=== PATIENT | female | born 1980 | race Two or more races ===

== ENCOUNTER 2016-08-10 17:53 | Emergency (ER) | payer SELFPAY ==
[~2016-08-10] VITALS: Ht 149.9 cm; Wt 77.1 kg
[~2016-08-10 17:53] MED LIST: PROM25TA10 PO; SUMA50TA3 PO
[2016-08-10] MEDS ORDERED: IV NORMAL SALINE 1000ML BAG 1,000 ML IV SCH (19:38)
[2016-08-10] MEDS ORDERED: LORAZEPAM 2 MG/ML VIAL IV ONE (19:45)
[2016-08-10] MEDS ORDERED: ASPIRIN 81 MG TAB.CHEW PO ONE (19:45)
--- NOTE | 2016-08-10 19:45 | PHYS DOC ---
Past Medical History Past Medical History: Migraines Past Surgical History: , Tubal ligation Alcohol Use: None Drug Use: None Adult General Chief Complaint Chief Complaint: CHEST PAIN HPI HPI Patient is a 35 year old female who presents with complaint of chest pain. Patient states that she has been having intermittent symptoms over the past 2-3 weeks, however she had a sudden onset of symptoms while driving earlier today at 1400. Patient states that she experienced substernal chest pain which radiated through her back and into her left shoulder. Patient had associated nausea with her symptoms and pain and numbness in her left upper extremity. Patient states that the symptoms have improved at this time but are still present. Patient denies any significant past medical history and is not currently on any medications. Patient denies any family history of heart attack. Patient states that she has not taken any medications to help with symptoms. Patient denies history of tobacco use. Review of Systems Review of Systems Constitutional: Denies fever or chills [] Eyes: Denies change in visual acuity, redness, or eye pain [] HENT: Denies nasal congestion or sore throat [] Respiratory: Denies cough or shortness of breath [] Cardiovascular: Chest pain, denies edema [] GI: Nausea, denies abdominal pain, vomiting, bloody stools or diarrhea [] : Denies dysuria or hematuria [] Musculoskeletal: Denies back pain or joint pain [] Integument: Denies rash or skin lesions [] Neurologic: Denies headache, focal weakness or sensory changes [] Current Medications Current Medications Current Medications Medications (Trade) Dose Ordered Sig/Basim Start Time Stop Time Status Last Admin Dose Admin Aspirin (Children'S Aspirin) 324 mg 1X ONCE 08/10/16 19:45 08/10/16 19:46 DC 08/10/16 20:14 324 MG Lorazepam 1 mg 1 mg 1X ONCE 08/10/16 19:45 08/10/16 19:46 DC 08/10/16 20:14 1 MG Sodium Chloride (Iv Sodium Chloride 0.9% 1000ml Bag) 1,000 ml @ 1,000 mls/hr Q1H 08/10/16 19:38 08/10/16 20:37 DC 08/10/16 20:13 1,000 MLS/HR Allergies Allergies Allergies Coded Allergies Type Severity Reaction Last Updated Verified No Known Drug Allergies 8/30/16 No Physical Exam Physical Exam Constitutional: Alert, afebrile, appears in mild discomfort. [] HENT: Normocephalic, atraumatic, bilateral external ears normal, oropharynx moist, no oral exudates, nose normal. [] Eyes: PERRLA, EOMI, conjunctiva normal, no discharge. [] Neck: Normal range of motion, no tenderness, supple, no stridor. [] Cardiovascular:Heart rate regular rhythm, no murmur [] Lungs & Thorax: Bilateral breath sounds clear to auscultation [] Abdomen: Bowel sounds normal, soft, no tenderness, no masses, no pulsatile masses. [] Skin: Warm, dry, no erythema, no rash. [] Back: No tenderness, no CVA tenderness. [] Extremities: No tenderness, no cyanosis, no clubbing, ROM intact, no edema. [] Neurologic: Alert and oriented X 3, normal motor function, normal sensory function, no focal deficits noted. [] Current Patient Data Vital Signs Vital Signs Date Time Temp Pulse Resp B/P Pulse Ox O2 Delivery O2 Flow Rate FiO2 08/10/16 19:11 98.1 65 20 119/65 99 Room Air 98.1 Lab Values Laboratory Tests Test 08/10/16 19:20 08/10/16 19:50 08/10/16 20:03 White Blood Count 7.1x10^3/uL (4.0-11.0) Red Blood Count 4.18x10^6/uL (3.50-5.40) Hemoglobin 12.9g/dL (12.0-15.5) Hematocrit 39.7% (36.0-47.0) Mean Corpuscular Volume 95fL (79-100) Mean Corpuscular Hemoglobin 31pg (25-35) Mean Corpuscular Hemoglobin Concent 32g/dL (31-37) Red Cell Distribution Width 13.7% (11.5-14.5) Platelet Count 350x10^3/uL (140-400) Neutrophils (%) (Auto) 32% (31-73) Lymphocytes (%) (Auto) 54% (24-48) H Monocytes (%) (Auto) 8% (0-9) Eosinophils (%) (Auto) 5% (0-3) H Basophils (%) (Auto) 1% (0-3) Neutrophils # (Auto) 2.3x10^3uL (1.8-7.7) Lymphocytes # (Auto) 3.9x10^3/uL (1.0-4.8) Monocytes # (Auto) 0.6x10^3/uL (0.0-1.1) Eosinophils # (Auto) 0.3x10^3/uL (0.0-0.7) Basophils # (Auto) 0.1x10^3/uL (0.0-0.2) D-Dimer (Kaylie) 0.33ug/mlFEU (0.00-0.50) Sodium Level 143mmol/L (136-145) Potassium Level 3.7mmol/L (3.5-5.1) Chloride Level 107mmol/L (98-107) Carbon Dioxide Level 27mmol/L (21-32) Anion Gap 9 (6-14) Blood Urea Nitrogen 15mg/dL (7-20) Creatinine 0.6mg/dL (0.6-1.0) Estimated GFR (Cockcroft-Gault) 112.5 Glucose Level 102mg/dL (70-99) H Calcium Level 8.8mg/dL (8.5-10.1) Magnesium Level 2.0mg/dL (1.8-2.4) Total Bilirubin 0.2mg/dL (0.2-1.0) Direct Bilirubin < 0.1mg/dL (0.0-0.2) Aspartate Amino Transferase (AST) 15U/L (15-37) Alanine Aminotransferase (ALT) 26U/L (14-59) Alkaline Phosphatase 65U/L (46-116) Creatine Kinase 120U/L (26-192) Creatine Kinase MB (Mass) 0.6ng/mL (0.0-3.6) Creatine Kinase MB Relative Index 0.5% (0-4) Troponin I Quantitative < 0.017ng/mL (0.000-0.055) LX-Beh-O-Type Natriuretic Peptide 20pg/mL (0-124) Total Protein 7.4g/dL (6.4-8.2) Albumin 3.6g/dL (3.4-5.0) Urine Collection Type Unknown Urine Color Yellow Urine Clarity Cloudy Urine pH 6.0 Urine Specific [place] >=1.030 Urine Protein Negativemg/dL (NEG-TRACE) Urine Glucose (UA) Negativemg/dL (NEG) Urine Ketones (Stick) Negativemg/dL (NEG) Urine Blood Negative (NEG) Urine Nitrite Negative (NEG) Urine Bilirubin Negative (NEG) Urine Urobilinogen Dipstick 1.0mg/dL (0.2 mg/dL) Urine Leukocyte Esterase Negative (NEG) Urine RBC Occ/HPF (0-2) Urine WBC Rare/HPF (0-4) Urine Squamous Epithelial Cells Many/LPF Urine Bacteria Moderate/HPF (0-FEW) Urine Mucus Marked/LPF POC Urine HCG, Qualitative Hcg negative (Negative) Laboratory Tests 08/10/16 19:20 Laboratory Tests 08/10/16 19:20 EKG EKG Interpreted by me: Heart rate 64, normal sinus rhythm, normal intervals, T-wave inversions in V2 and V3, no acute ST elevations or depressions [] Radiology/Procedures Radiology/Procedures One view AP chest x-ray interpreted by me: No pulmonary infiltrates or effusions , normal cardiac silhouette [] Course & Med Decision Making Course & Med Decision Making Pertinent Labs and Imaging studies reviewed. (See chart for details) Patient was given aspirin and Ativan in the emergency department. On reevaluation, patient's symptoms have resolved at this time. The patient's lab work showed evidence of dehydration but no other significant abnormality. The patient has a MARJORIE score of 0. This patient is appropriate for discharge with recommended follow-up in 3 days with cardiology for outpatient stress testing. The patient will be placed on a daily baby aspirin. Advised return emergency department for any worsening symptoms. Patient was understanding and in agreement with treatment plan. Dragon Disclaimer Dragon Disclaimer This electronic medical record was generated, in whole or in part, using a voice recognition dictation system. Departure Departure Impression: Primary Impression: Chest pain Additional Impression: Dehydration Disposition: 01 HOME, SELF-CARE Condition: IMPROVED Referrals: NO PCP (PCP) NISREEN BOJORQUEZ MD Patient Instructions: Chest Pain (Nonspecific) Additional Instructions: Follow-up with Dr. Bojorquez in 3 days for evaluation and is set up outpatient stress testing. Take an 81 mg baby aspirin daily with breakfast until you have seen Dr. Bojorquez. Return to the emergency department for any worsening symptoms. Problem Qualifiers Primary Impression: Chest pain Chest pain type: unspecified Qualified Code: R07.9 - Chest pain, unspecified ARIAS ARCE MD Aug 10, 2016 19:45
[2016-08-10 19:51] LABS: BASO # 0.1 x10^3/uL (0.0-0.2); BASO % 1 % (0-3); EOS % 5 % (0-3); HEMATOCRIT 39.7 % (36.0-47.0); HEMOGLOBIN 12.9 g/dL (12.0-15.5); LYMPH # 3.9 x10^3/uL (1.0-4.8); LYMPH % 54 % (24-48); MEAN CORPUSCULAR HEMOGLOBIN 31 pg (25-35); MEAN CORPUSCULAR HGB CONC 32 g/dL (31-37); MEAN CORPUSCULAR VOLUME 95 fL (79-100); MONO % 8 % (0-9); NEUT % 32 % (31-73); PLATELET COUNT 350 x10^3/uL (140-400); RED BLOOD COUNT 4.18 x10^6/uL (3.50-5.40); RED CELL DISTRIBUTION WIDTH 13.7 % (11.5-14.5); WHITE BLOOD COUNT 7.1 x10^3/uL (4.0-11.0)
[2016-08-10 20:03] LABS: ANION GAP 9 (6-14); BLOOD UREA NITROGEN 15 mg/dL (7-20); CALCIUM 8.8 mg/dL (8.5-10.1); CARBON DIOXIDE 27 mmol/L (21-32); CHLORIDE 107 mmol/L (98-107); CREATININE 0.6 mg/dL (0.6-1.0); GFR 112.5; GLUCOSE 102 mg/dL (70-99); POTASSIUM 3.7 mmol/L (3.5-5.1); SODIUM 143 mmol/L (136-145)
[2016-08-10 20:08] LABS: ALBUMIN 3.6 g/dL (3.4-5.0); ALK PHOS 65 U/L (46-116); ALT (SGPT) 26 U/L (14-59); AST (SGOT) 15 U/L (15-37); DIRECT BILIRUBIN < 0.1 mg/dL (0.0-0.2); TOTAL BILIRUBIN 0.2 mg/dL (0.2-1.0); TOTAL PROTEIN 7.4 g/dL (6.4-8.2)
[2016-08-10 20:16] LABS: BILIRUBIN,URINE NEGATIVE (NEG); GLUCOSE,URINE NEGATIVE (NEG); NITRITE,URINE NEGATIVE (NEG); PROTEIN,URINE NEGATIVE (NEG-TRACE)
[2016-08-10 20:17] LABS: CKMB INDEX 0.5 % (0-4); CKMB MASS 0.6 ng/mL (0.0-3.6)
[2016-08-10 20:31] LABS: BACTERIA,URINE MODERATE /HPF (0-FEW); RBC,URINE OCC /HPF (0-2); SQUAMOUS EPITHELIAL CELL,UR MANY /LPF; WBC,URINE RARE /HPF (0-4)
[2016-08-10 21:26] VITALS: BP 113/65
--- NOTE | 2016-08-11 07:48 | EKG ---
[facility] [address] [place] [address] Test Date: 2016-08-10 Test Time: 19:15:06 Pat Name: CEDRIC SINGER Department: Room: Gender: F Manager Solar: : 1980 Requested By: ARIAS ARCE Order Number: [id number] Reading MD: Measurements Intervals [place] Rate: 64 P: 40 SD: 144 QRS: 12 QRSD: 82 T: 24 QT: 412 QTc: 429 Interpretive Statements SINUS RHYTHM QRS(T) CONTOUR ABNORMALITY CONSIDER ANTEROLATERAL MYOCARDIAL DAMAGE POSSIBLY ABNORMAL ECG RI6.01 No previous ECG available for comparison
--- NOTE | 2016-08-11 08:11 | RAD ---
Portable chest, 08/10/2016: History: Chest pain The heart size and pulmonary vascularity are normal. No pulmonary infiltrates are seen. There is no evidence of pleural fluid. IMPRESSION: No acute cardiopulmonary abnormality is detected.
== END 2016-08-10 21:45 | disposition home or self-care (01) ==
LOC: ER 17:53
DX: R07.89 Other chest pain (principal); E86.0 Dehydration; G43.909 Migraine, unspecified, not intractable, without status migrainosus
CPT/HCPCS: 36415; 71010; 80048; 80076; 81001; 81025; 82553; 83735; 83880; 84484; 85027; 85379; 87086; 93005; 96361; 96374; 99285; J2060; J7030